=== PATIENT | female | born 1975 | race Caucasian/White ===

== ENCOUNTER → 2023-12-25 | Outpatient (REF) | payer BC ==
[~2023-12-25] MED LIST: ASPIRIN81 MG PO; EFFEXOR XR150 MG PO; LASIX20 MG PO; MEROPENEM-1 GM/50 ML IV; NORCO PO; OXYCODONE HCL10 MG PO; POTASSIUM CHLO10 ME1 PO; SUMATRIPTAN SUC50 MG; TEMAZEPAM30 MG PO; TRAZODONE HCL300 MG PO; ZYRTEC10 MG PO
== END ==
LOC: WCC 14:00
PROVIDERS: ATTEND Internal Medicine Infectious Disease
DX: T81.89XA Other complications of procedures, not elsewhere classified, initial encounter (principal)

== ENCOUNTER → 2024-01-01 | Outpatient (REF) | payer BC | LOC: WCC 13:00 | PROVIDERS: ATTEND Internal Medicine Infectious Disease | DX: T81.89XA Other complications of procedures, not elsewhere classified, initial encounter (principal); B99.8 Other infectious disease ==